=== PATIENT | male | born 1995 | race Caucasian/White ===

== ENCOUNTER 2018-11-17 19:17 | Emergency (ER) | payer OTHER ==
[~2018-11-17] VITALS: Ht 167.6 cm; Wt 90.7 kg
[2018-11-17 19:31] VITALS: BP 108/58
--- NOTE | 2018-11-17 19:31 | NUR ---
PT TAKEN TO BED 11
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
[2018-11-17] MEDS ORDERED: ONDANSETRON 4 MG ODT PO ONE (19:50)
[2018-11-17] MEDS ORDERED: KETOROLAC 30 MG/ML VIAL IM ONE (19:50)
--- NOTE | 2018-11-17 20:09 | NUR ---
PT TAKEN TO CT VIA WHEELCHAIR.
--- NOTE | 2018-11-17 20:20 | NUR ---
PT RETURN FROM CT
--- NOTE | 2018-11-17 21:10 | NUR ---
Patient discharged with v/s stable. Written and verbal after care instructions given and explained. Patient alert, oriented and verbalized understanding of instructions. Ambulatory with steady gait. All questions addressed prior to discharge. ID band removed. Patient advised to follow up with PMD. Rx of FIORECET given. Patient educated on indication of medication including possible reaction and side effects. Opportunity to ask questions provided and answered.
[2018-11-17 21:11] VITALS: BP 107/57
== END 2018-11-17 21:10 | disposition home or self-care (01) ==
LOC: MED 19:17
DX: R51 Headache (principal); R11.0 Nausea; R42 Dizziness and giddiness; Z88.0 Allergy status to penicillin; Z90.49 Acquired absence of other specified parts of digestive tract
CPT/HCPCS: 70450; 96372; 99284; J1885; Q0162

== ENCOUNTER 2019-09-27 15:07 | Emergency (ER) | payer OTHER ==
[~2019-09-27] VITALS: Ht 165.1 cm; Wt 89.4 kg
[2019-09-27 15:21] VITALS: BP 147/90
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
[2019-09-27] MEDS ORDERED: KETOROLAC 60 MG/2 ML VIAL IM ONE (16:55)
[2019-09-27 17:19] VITALS: BP 122/77
--- NOTE | 2019-09-27 17:19 | NUR ---
Patient discharged with v/s stable. Written and verbal after care instructions given and explained. Patient alert, oriented and verbalized understanding of instructions. Ambulatory with steady gait. All questions addressed prior to discharge. ID band removed. Patient advised to follow up with PMD. Rx of FLEXERIL, IBUPROFEN given. Patient educated on indication of medication including possible reaction and side effects. Opportunity to ask questions provided and answered.
== END 2019-09-27 17:19 | disposition home or self-care (01) ==
LOC: MED 15:07
DX: S16.1XXA Strain of muscle, fascia and tendon at neck level, initial encounter (principal); Z88.0 Allergy status to penicillin; V49.9XXA Car occupant (driver) (passenger) injured in unspecified traffic accident, initial encounter; Y93.89 Activity, other specified; Y92.89 Other specified places as the place of occurrence of the external cause; Y99.8 Other external cause status
CPT/HCPCS: 96372; 99283; J1885

== ENCOUNTER 2019-10-03 15:41 | Emergency (ER) | payer OTHER ==
[~2019-10-03] VITALS: Ht 162.6 cm; Wt 89.4 kg
--- NOTE | 2019-10-03 15:57 | NUR ---
PT AMBULATED TO ER [facility]
[2019-10-03 15:58] VITALS: BP 157/72
[2019-10-03] MEDS ORDERED: IBUP-2213 PO (16:08)
[2019-10-03] MEDS ORDERED: CYCL10TA36 PO (16:08)
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
[2019-10-03 16:40] VITALS: BP 157/72
--- NOTE | 2019-10-03 16:40 | NUR ---
Patient discharged with v/s stable. Written and verbal after care instructions given and explained. Patient verbalized understanding. Ambulatory with steady gait. All questions addressed prior to discharge. Advised to follow up with PMD.
== END 2019-10-03 16:40 | disposition home or self-care (01) ==
LOC: MED 15:41
DX: S29.012A Strain of muscle and tendon of back wall of thorax, initial encounter (principal); Z88.0 Allergy status to penicillin; V49.9XXA Car occupant (driver) (passenger) injured in unspecified traffic accident, initial encounter; Y93.89 Activity, other specified; Y92.488 Other paved roadways as the place of occurrence of the external cause; Y99.8 Other external cause status
CPT/HCPCS: 99281; 99283

== ENCOUNTER 2021-12-09 10:39 | Emergency (ER) | payer OTHER ==
[~2021-12-09] VITALS: Ht 165.1 cm; Wt 89.8 kg
[~2021-12-09 10:39] MED LIST: CYCL10TA36 PO; IBUP-2213 PO
[2021-12-09 11:00] VITALS: BP 148/62
--- NOTE | 2021-12-09 11:07 | NUR ---
DR. CUMMINGS WITH PT FOR FURTHER EVALUATION.
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
--- NOTE | 2021-12-09 12:01 | NUR ---
MARLIN HARGROVE EVALUATING PT AT THIS TIME
[2021-12-09] MEDS ORDERED: ACET-8386 PO (12:41)
[2021-12-09] MEDS ORDERED: IBUP-2213 PO (12:41)
--- NOTE | 2021-12-09 12:56 | NUR ---
Patient discharged with v/s stable. Written and verbal after care instructions ABOUT FOREARM FRACTURE REHAB given and explained. Patient alert, oriented and verbalized understanding of instructions. Ambulatory with steady gait. All questions addressed prior to discharge. ID band removed. Patient advised to follow up with PMD. Rx of NORCO 5-325MG AND IBUPROFEN given. Patient educated on indication of medication including possible reaction and side effects. Opportunity to ask questions provided and answered.
--- NOTE | 2021-12-09 12:57 | NUR ---
Placed pt's right arm in a sugartong splint and inspected by MARLIN Mitchell at completion.
--- NOTE | 2021-12-09 20:10 | NUR ---
spoke with patient about unable to send prescriptions to new pharmacy but was PA reports that pt can take ibuprofen.
== END 2021-12-09 12:56 | disposition home or self-care (01) ==
LOC: MED 10:39
DX: S52.601A Unspecified fracture of lower end of right ulna, initial encounter for closed fracture (principal); Z79.891 Long term (current) use of opiate analgesic; Z79.899 Other long term (current) drug therapy; Z79.1 Long term (current) use of non-steroidal anti-inflammatories (NSAID); Z88.0 Allergy status to penicillin; W20.8XXA Other cause of strike by thrown, projected or falling object, initial encounter; Y93.89 Activity, other specified; Y92.89 Other specified places as the place of occurrence of the external cause; Y99.0 Civilian activity done for income or pay
CPT/HCPCS: 73090; 99283

== ENCOUNTER 2022-09-12 00:12 | Emergency (ER) | payer MEDICAID, OTHER ==
[~2022-09-12] VITALS: Ht 165.1 cm; Wt 88.9 kg
[~2022-09-12 00:12] MED LIST changes: +ACET-8905 PO
[2022-09-12 00:45] VITALS: BP 119/71
--- NOTE | 2022-09-12 00:48 | NUR ---
to bed ambulatory
--- NOTE | 2022-09-12 01:09 | NUR ---
Patient being evaluated by physician at bedside.
--- NOTE | 2022-09-12 01:17 | NUR ---
27 Y/O M PRESENTS WITH AN ALLERGIC REACTION ALL OVER BODY SINCE WEDNESDAY. REDDENED AND ITCHING STATED BY PT. PT STATED HIS LIPS FELT TINGLING. A&OX4, SKIN INTACT AND RESPIRATIONS EVEN AND UNLABORED. PT STATED HE TOOK CLARITON YESTERDAY WITH MINOR RELIEF PMH-PT DENIES ALLERGIES- PENICILLIN, AMOXICILLIN
[2022-09-12] MEDS ORDERED: DEXAMETHASONE 10 MG/ML VIAL IM ONE (01:35)
[2022-09-12] MEDS ORDERED: PRED20TA5 PO (01:37)
[2022-09-12] MEDS ORDERED: ATA10 PO (01:38)
== END 2022-09-12 01:40 | disposition home or self-care (01) ==
LOC: MED 00:12
DX: R21 Rash and other nonspecific skin eruption (principal); Z88.0 Allergy status to penicillin; Z72.89 Other problems related to lifestyle
CPT/HCPCS: 99281; J1100

== ENCOUNTER 2023-01-13 14:59 | Emergency (ER) | payer BC, MEDICAID ==
[~2023-01-13] VITALS: Ht 167.6 cm; Wt 82.6 kg
[~2023-01-13 14:59] MED LIST changes: +ATA10 PO; +PRED20TA5 PO
[2023-01-13 15:06] VITALS: BP 141/73
[2023-01-13] MEDS ORDERED: LIDOCAINE MPF 1% 10 MG/ML VIAL INJ ONE (15:15)
[2023-01-13] MEDS ORDERED: BACITRACIN OINT 500 UNITS/GM PKT TP ONE (15:20)
[2023-01-13 16:57] VITALS: BP 141/73
== END 2023-01-13 16:57 | disposition home or self-care (01) ==
LOC: MED 14:59
DX: S61.217A Laceration without foreign body of left little finger without damage to nail, initial encounter (principal); W26.0XXA Contact with knife, initial encounter; Y93.89 Activity, other specified; Y92.89 Other specified places as the place of occurrence of the external cause; Y99.8 Other external cause status
CPT/HCPCS: 12001; 90471; 90715; 99283; J2001